=== PATIENT | female | born 1960 | race Caucasian/White ===

== ENCOUNTER → 2021-12-12 13:35 | Outpatient (BNVA) | payer OTHER, SELFPAY | PROVIDERS: PCP Internal Medicine; Visit Provider Nurse Practitioner Family | DX: I25.10 Atherosclerotic heart disease of native coronary artery without angina pectoris (principal); I25.2 Old myocardial infarction; Z79.899 Other long term (current) drug therapy; Z98.890 Other specified postprocedural states | CPT/HCPCS: 99212 ==

== ENCOUNTER → 2022-05-03 12:52 | Outpatient (BNVA) | payer OTHER, SELFPAY | PROVIDERS: PCP Internal Medicine; Visit Provider Nurse Practitioner Family | DX: I25.2 Old myocardial infarction (principal); I20.8 Other forms of angina pectoris; R23.2 Flushing | CPT/HCPCS: 99212 ==

== ENCOUNTER → 2022-09-06 12:59 | Outpatient (BNVA) | payer OTHER, SELFPAY | PROVIDERS: PCP Internal Medicine; Referring Provider Internal Medicine; Visit Provider Nurse Practitioner Family | DX: I25.10 Atherosclerotic heart disease of native coronary artery without angina pectoris (principal); E78.5 Hyperlipidemia, unspecified; I10 Essential (primary) hypertension; I25.2 Old myocardial infarction; Z79.02 Long term (current) use of antithrombotics/antiplatelets; Z79.82 Long term (current) use of aspirin; Z79.899 Other long term (current) drug therapy | CPT/HCPCS: 99212 ==

== ENCOUNTER → 2022-10-18 12:49 | Outpatient (REF) | payer OTHER, SELFPAY ==
--- NOTE | 2022-10-18 12:55 | CA_ITS ---
Transthoracic Echocardiogram Patient (Last, First, Middle): Shelbi Gonzalez, Gender: Female Date of : 1960 Age: 61 Procedure Date: 10/18/2022 Procedure Type: Transthoracic Echocardiogram Location: OP Height: 149.86 cm Weight: 65.77 kg BSA: 1.61 m2 Heart Rate: bpm BP: 140 / 98 mmHg Sales Consultant Residential Manager: TO Referring MD: Aura Espinoza NP-Wilmer Rn Otolaryngology: Hernandez Altamirano MD Symptoms: I25.10 - Atherosclerotic heart disease of [place] coronary artery without... Study Quality: Fair/Contrast ECG Rhythm: Sinus Conclusions: - 1. Mildly reduced LV systolic function with LVEF of 45-50% with grade 1 diastolic dysfunction with regional wall motion abnormality consistent with underlying coronary artery disease 2. Normal cardiac valvular Dopplers next 3. Normal RV systolic pressure 4. No gross pericardial effusion Findings Procedure Information Contrast agent, definity, is being given per protocol without apparent complications. Left Ventricle Normal left ventricular cavity size. There is normal left ventricular wall thickness. The left ventricular systolic function is mildly decreased. The visually estimated ejection fraction is between 45-50%. Spectral Doppler is indicative of an impaired relaxation filling pattern. E/E prime ratio is <8, consistent with normal filling pressures. Evidence suggests grade I (mild) diastolic dysfunction. Wall Motion Rest Echo Findings The inferoseptal wall and mid inferior segment are hypokinetic. The basal inferior segment is akinetic. All other scored wall segments showed normal motion. Right Ventricle Normal right ventricular cavity size and systolic function. Atria The left atrium is normal in size. There is lipomatous hypertrophy of the interatrial septum. There is no evidence of interatrial shunt. The right atrium is normal in size. Aortic Valve There is mild calcification of the aortic valve. There is mild thickening of the aortic valve. There is no aortic valve stenosis. There is no aortic valve regurgitation. Mitral Valve There is mild anterior and posterior mitral leaflet thickening. There is trace mitral valve regurgitation. There is no mitral valve stenosis. Pulmonic Valve The pulmonic valve was not well visualized. Tricuspid Valve Likely normal tricuspid valve structure and function. There is trace tricuspid valve regurgitation. The right ventricular systolic pressure is normal. The right ventricular systolic pressure is 19 mmHg. Normal right atrial pressure. There is no evidence of pulmonary hypertension. Great Vessels All visible segments of the aorta are normal in size. The pulmonary artery was not well visualized. Venous The inferior vena cava is normal in size and collapses greater than 50% with inspiration. Pericardium/Pleural There is no evidence of pericardial effusion. Prior Study Comparison No prior study available for comparison. Measurements 2D Linear Measurements IVSd: 1.05 0.6-0.9/0.6-1.0 cm LVIDd: 4.26 3.9-5.3/4.2-5.9 cm LVIDd Index: 2.65 2.4-3.2/2.2-3.1 cm/m2 LVIDs: 3.60 2.0-3.6 cm LVPWd: 1.02 0.7-1.1 cm LA Diam: 2.80 2.7-3.8/3.0-4.0 cm LAIDs Index: 1.74 1.5-2.3 cm/m2 LV Mass: 183.38 67-162/88-224 g LV Mass Index: 113.90 43-95/49-115 g/m2 LVOT Diam: 1.90 3.0+(-)1.3 cm 2D Systolic Function EF 4C: 48.60 >55% EF 2C: 39.30 >55% EF BiP: 46.60 >55% Mitral Valve MV VTI: 0.22 MV Pk Elder: 0.95 MV Mn Elder: 0.62 MV Pk Grad: 4.00 MV Mn Grad: 2.00 MV Pk E: 0.52 MV PK A: 0.62 MV Decel Time: 212.00 E/A: 0.80 E'Lateral: 6.85 E'Medial: 4.35 E/E' Med: 12.00 E/E' Lat: 7.60 PHT: 62.00 MVA PHT: 3.55 MVA Continuity: 1.94 Decel Hardy: 2.47 Aortic Valve AoV Pk Elder: 1.31 AoV Mn Elder: 0.91 AoV VTI: 0.27 AoV Pk Grad: 7.00 Aov Mn Grad: 4.00 CHUCK Cont.VTI: 1.62 LVOT LVOT Pk Elder: 0.74 LVOT Mn Elder: 0.48 LVOT VTI: 0.15 LVOT Pk Grad: 2.00 LVOT Mn Grad: 1.00 LVOT Diam: 1.90 LVOT Area: 2.84 Diastolic Function MV Pk E: 0.52 MV Pk A: 0.62 E/A: 0.80 E'Medial: 4.35 E/E' Med: 12.00 E' Laterial: 6.85 E/E' Lat: 7.60 Right Ventricle TAPSE (mm): 17.70 TVS' Elder: 8.65 Tricuspid Valve TR Pk Elder: 1.98 TR Pk Grad: 16.00 RA Press: 3.00 RVSP: 19.00 Great Vessels Aorta Sinus of Valsalva: 3.28 2.0-3.5 cm Ao Asc: 3.10 2.1-3.4 cm Updated in Other Vendor System with Status of Final Hernandez Altamirano MD electronically signed on 10/18/2022 4:56:50 PM with status of Final
== END ==
LOC: HO.CARD 12:49
PROVIDERS: PCP Registered Nurse; Visit Provider Nurse Practitioner Family
DX: I25.10 Atherosclerotic heart disease of native coronary artery without angina pectoris (principal); I21.3 ST elevation (STEMI) myocardial infarction of unspecified site
CPT/HCPCS: 93306; Q9957

== ENCOUNTER → 2022-11-16 09:17 | Outpatient (REF) | payer OTHER, SELFPAY ==
--- NOTE | ~2022-11-16 | NM_ITS ---
Myocardial perfusion study Indication: Abnormal cardiac test evaluate for myocardial ischemia Technique: The patient was brought in for a Lexiscan perfusion study on 11/16/2022. Patient performed low-level exercise and was injected 0.4 mg of Lexiscan intravenously. Within a minute of injection, 25 mCi of sestamibi was given intravenously. Images were obtained using the SPECT gamma camera interlaced with the gating device. Images were obtained in supine position. Resting perfusion study was performed on 11/20/2022. Patient was administered 25 mCi of sestamibi intravenously at rest. Images were then obtained in supine position. Images obtained with and without CT attenuation. Total DLP 108 mGy-cm. Images were processed with the software and compared side to side in short axis, horizontal long axis and vertical long axis views. Findings: The stress perfusion study showed non attenuated images show moderate to severely reduced uptake in the basal inferior wall of the LV myocardium. Attenuation corrected images show mildly reduced uptake in the apex and severely reduced uptake in the basal inferior wall of the LV myocardium.. The gated study shows low normal LV systolic function with calculated LVEF of 54%. LV cavity is normal size. The gated study shows reduced basal inferior wall thickening and contraction of segments. Resting study shows no change in perfusion pattern compared to stress perfusion study. Gating at rest reveals basal inferior wall motion abnormality with ejection fraction at 51%. The findings are consistent with no reversible ischemia with fixed defect in the inferior wall consistent with prior myocardial infarction. LA/LA cardiolite stress test Impression: 1. Myocardial perfusion imaging study shows basal inferior myocardial infarction with no reversible ischemia 2. Gated LVEF is 54% 3. Transient ischemic dilatation not present EKG is nondiagnostic for ischemia
--- NOTE | 2022-11-16 09:20 | CA_ITS ---
Acquisition Time: 2022-11-16 09:24:05 Total Exercise Time: 00:03:00 Test Indications: ABN ECHO Medications: Protocol: LAURA Max HR: 129 BPM 80% of Pred: 160 BPM Max BP: 158/090 mmHG Max Work Load: 4.6 METS Exercise stress test exercise 3 min briefly achieving 80% MPHR, with request to stop due to fatigue and moderate SOB without being able to continue, without chest discomfort, without arrhythmias, with normotensive response to exercise, without EKG changes. Breathing returned to normal. Test changed to pharmacological stress test with Lexiscan, without anginal symptoms, without arrhythmias, with normotensive response to injection, with non-diagnositic EKGs. Aminophylline 75mg IVP given to reverse Lexiscan. Nuclear images pending. Test reviewed with Dr. Altamirano. Referred By: Aura Espinoza Overread By: Diana Hurley
== END ==
LOC: HO.CARD 09:17
PROVIDERS: PCP Registered Nurse; Visit Provider Nurse Practitioner Family
DX: I25.10 Atherosclerotic heart disease of native coronary artery without angina pectoris (principal); R93.1 Abnormal findings on diagnostic imaging of heart and coronary circulation; Z98.890 Other specified postprocedural states
CPT/HCPCS: 78452; 93017; A9500; J0280; J2785

== ENCOUNTER → 2022-11-16 09:20 | Outpatient (BNV) | payer OTHER, SELFPAY | PROVIDERS: PCP Registered Nurse; Visit Provider Nurse Practitioner | DX: I25.10 Atherosclerotic heart disease of native coronary artery without angina pectoris (principal) | CPT/HCPCS: 78452; 93016; 93018 ==

== ENCOUNTER 2022-11-29 10:57 | Outpatient (REF) | payer OTHER, SELFPAY ==
[2022-11-29 11:48] LABS: B Type Natriuretic Peptide 84 pg/mL (<100)
[2022-11-29 12:51] LABS: Alanine Aminotransferase 30 U/L (0-31); Alkaline Phosphatase 104 U/L (39-117); Anion Gap 14 (12-20); Aspartate Amino Transferase 38 U/L (5-31); Bilirubin Total 0.6 mg/dL (0.0-1.0); Blood Urea Nitrogen 16 mg/dL (9-16); Calcium 9.3 mg/dL (8.4-10.2); Carbon Dioxide 28 mmol/L (22-29); Chloride 105 mmol/L (96-108); Cholesterol 146 mg/dL; Estimated Glomerular Filt Rate > 60; Glucose Fasting 95 mg/dL (60-99); HDL Cholesterol 63 mg/dL; LDL Cholesterol Calculated 63 mg/dl; Potassium 4.3 mmol/L (3.3-5.1); Sodium 143 mmol/L (135-145); Total Protein 6.7 g/dL (6.5-8.0); Triglycerides 101 mg/dL
== END 2022-11-29 10:58 | disposition home or self-care (01) ==
LOC: HO.LAB 10:57
PROVIDERS: PCP Registered Nurse; Visit Provider Nurse Practitioner Family
DX: I21.3 ST elevation (STEMI) myocardial infarction of unspecified site (principal); I25.10 Atherosclerotic heart disease of native coronary artery without angina pectoris; R06.02 Shortness of breath; E78.5 Hyperlipidemia, unspecified; I10 Essential (primary) hypertension; Z98.890 Other specified postprocedural states
CPT/HCPCS: 36415; 80053; 80061; 83880; 93005; 99212

== ENCOUNTER 2022-11-29 12:58 | Outpatient (AMB) | payer OTHER, SELFPAY ==
[2022-11-29 13:02] VITALS: BP 140/60; PULSE 79; BMI 30.3
--- NOTE | 2022-11-29 13:02 | MHC.OFFVIS ---
Intake Vital Signs 11/29/22 13:02 Height 4 ft 11 in Weight 149 lb 14.629 oz BMI 30.3 BP 140/60 H Blood Pressure Location Lt brachial Position Sitting Pulse 79 Intake Visit Reasons: 3 month follow up Intake Note: 3 month f/u Lead Caster Helper Required: No Allergies No Known Allergies [No Known Allergies*] Allergy (Verified 11/29/22 13:11) Medication List - Last Reconciled 11/29/22 by Aura Espinoza, REILLY-C acetaminophen 500 mg PO Q4-6H PRN aspirin 81 mg PO DAILY atorvastatin 80 mg PO DAILY buspirone 10 mg PO BID cetirizine 10 mg PO DAILY clopidogrel 75 mg PO DAILY duloxetine 120 mg PO DAILY famotidine 40 mg PO BID ferrous sulfate 325 mg PO DAILY gabapentin 300 mg PO BEDTIME hydroxyzine HCl 25 mg PO BID PRN metoprolol succinate ER 25 mg PO DAILY 90 days risperidone 0.5 mg PO BEDTIME sennosides-docusate sodium 8.6-50 mg (Senna Plus) 2 tabs PO BEDTIME tramadol 50 mg PO DAILY HPI 3 month follow up HPI Details Shelbi is a 61-year-old female with past medical history of hypertension and hyperlipidemia who presented to [facility] with CP, inferior STEMI, October 2021.? Cardiac catheterization showed occluded RCA which was managed medically due to late presentation. She underwent an echocardiogram recently which did show a mild reduction in her EF which led to a nuclear stress test showing her prior inferior infarct. She was noted to have significantly decreased activity tolerance. Today she reports that she does have shortness of breath with activity but it has been unchanged overall in the last 2-3 years. She admits to being mostly sedentary. She denies any lung issues and has never smoked tobacco. She admits to smoking marijuana up to 3 times daily to help relax her. No PND, orthopnea or edema. No chest discomfort at rest or with activity. No palpitations, dizziness, presyncope, syncope, falls. She bruises easily with the use of aspirin and Plavix. is present. [facility] Medical History CAD (coronary artery disease) ST elevation (STEMI) myocardial infarction Surgical History H/O tubal ligation History of bladder surgery Hx of cardiac cath Family History Mother Lung cancer Heart attack Father Heart attack Brother Congestive heart failure Brother Alcoholism Liver cirrhosis Social History Alcohol intake: current Alcohol intake frequency: holidays/special occasions only Patient Tobacco Use Status: Never used Tobacco Substance Use Type: Marijuana Review of Systems Const All systems reviewed & are unremarkable except as noted in HPI and below ENT Denies dizziness Card Details: Symptom is not new, has been going on 2-3 years Denies chest pain, Denies chest pain at rest, Denies chest pain with activity, Denies rapid heart rate, Denies pedal edema, Denies edema, Denies leg edema, Denies lightheadedness, Denies palpitations, Reports dyspnea, Reports dyspnea on exertion and Denies orthopnea Resp Denies cough, Reports dyspnea and Reports dyspnea on exertion GI Denies hematochezia and Denies change in stool character Musc Denies abnormal gait, Reports limited range of motion, Reports muscle cramps, Denies muscle weakness, Denies numbness, Denies radiating pain into limb, Denies stiffness and Denies tingling Neuro Denies abnormal gait, Denies dizziness, Denies numbness and Denies tingling Endo Denies palpitations Physical Exam Vital Signs: Last Vital Signs Pulse 79 11/29/22 13:02 BP 140/60 H 11/29/22 13:02 BMI result Body Mass Index 30.3 Const General: cooperative, healthy appearing, comfortable and no acute distress Orientation/consciousness: patient oriented x3 Neck Neck: Yes normal visual inspection Resp Effort & Inspection: normal respiratory effort Auscultation: clear to auscultation bilaterally, no crackles, no rales, no rhonchi and no wheezes Cardio Jugular venous distension: no JVD Rate: regular rate Rhythm: regular rhythm Heart sounds: S1 normal heart sound present, S2 normal heart sound present, no murmurs and no rubs Neuro General: patient oriented x3 Extrem General: Yes normal to inspection Psych Appearance: grossly normal Mental Status: mental status grossly normal Speech and movement: Normal speech and movement present Office Procedures EKG Details: Today, read by me, normal sinus rhythm, left axis deviation, old inferior infarct, computer states can not rule out anterior infarct however no significant changes noted from prior EKG, could be lead placement versus body habitus, rate 79, QTC 431 millisecond [id number], Complete Assessment & Plan Assessment & Plan (1) ST elevation (STEMI) myocardial infarction: Code(s): I21.3 - ST elevation (STEMI) myocardial infarction of unspecified site Plan: Patient started having chest discomfort on 10/29/2021. She presented to [facility] ER on 11/01/2021 with inferior STEMI. She was taken to the component lab tech showing 100% RCA occlusion. PCI was not performed due to late presentation. She also had residual left main, 30% stenosis and LAD 50% stenosis. Echocardiogram done on 11/02/21 showed EF 65-70%, basal to mid inferior wall is akinetic, basal to mid inferior lateral wall is hypokinetic. She was started on aspirin indefinitely. Plavix 75 mg daily uninterrupted for a minimum of 1 year. High-dose atorvastatin and metoprolol. On last visit she denied anginal sounding symptoms. She underwent an echocardiogram to re-evaluate wall motion showing a reduction in EF down to 45-50%, grade 1 diastolic dysfunction, inferior regional wall motion abnormality. This was followed by an exercise nuclear stress test. She was noted to have significant decrease in exercise tolerance with symptom of shortness of breath. She admitted to having shortness of breath with activity even prior to her PA. her test was changed to a pharmacological stress test and the nuclear imaging showed a basal inferior PA with no reversible ischemia, EF 54%. Today she admits to the ongoing shortness of breath with activity. She admits to being sedentary as a result of this. BNP done today 84. With her residual CAD will review with Dr. Chakraborty regarding diagnostic angiogram to further evaluate. Cardiac risk factor modification reviewed. Will continue current med management including use of Plavix. Signs and symptoms of angina discussed. ED care if ever needed for symptoms. Cardiology follow-up to be determined (2) CAD (coronary artery disease): Code(s): I25.10 - Atherosclerotic heart disease of [place] coronary artery without angina pectoris Plan: No prior known history prior to cardiac event as above (3) Hx of cardiac cath: Comment: 11/01/2021 distal left main 30% stenosis, proximal LAD ostial 50% stenosis, mid LAD proximal 50% stenosis, left circumflex normal, RCA proximal 100% stenosis Code(s): Z98.890 - Other specified postprocedural states (4) Hyperlipemia: Code(s): E78.5 - Hyperlipidemia, unspecified Plan: [place] LDL goal < 70 in pt with CAD, stent. Labs today showed LDL 63. Continue high dose atorvastatin. Weight loss and increasing physical activity as able reviewed. (5) Hypertension: Code(s): I10 - Essential (primary) hypertension Plan: Mild elevation today, improved on recheck. Will continue current metoprolol. She will continue to check BPs at home and call if ongoing elevation. Low salt diet reviewed. Coding Level of Care Code Est Pt Level 4 (88713) Diagnoses ST elevation (STEMI) myocardial infarction I21.3 CAD (coronary artery disease) I25.10 Hx of cardiac cath Z98.890 Hyperlipemia E78.5 Hypertension I10 CPT Codes EKG - CPT: [id number], Complete ([id number]) Time Spent (min) 26 Comment Chart review, documentation, interview, assessment
== END 2022-11-29 13:52 | disposition home or self-care (01) ==
PROVIDERS: PCP Registered Nurse; Referring Provider Registered Nurse; Visit Provider Nurse Practitioner Family
DX: I21.3 ST elevation (STEMI) myocardial infarction of unspecified site (principal); I25.10 Atherosclerotic heart disease of native coronary artery without angina pectoris; Z98.890 Other specified postprocedural states; E78.5 Hyperlipidemia, unspecified; I10 Essential (primary) hypertension
CPT/HCPCS: 93010; 99214

== ENCOUNTER 2023-01-10 15:13 | Outpatient (REF) | payer OTHER, SELFPAY ==
[2023-01-10 15:48] LABS: MANUAL DIFF FLAG NO
[2023-01-10 16:16] LABS: Basophils Percent Auto 0.7 % (0-2); Eosinophils Absolute Auto 0.2 X10*3/uL (0.0-0.4); Eosinophils Percent Auto 4.2 % (0-4); Hematocrit 40.5 % (37.0-47.0); Hemoglobin 13.4 g/dl (12.0-16.0); Imm Gran Abs Auto 0.02 X10*3/uL (0.00-0.03); Imm Gran Pct Auto 0.5 % (0.0-0.4); Lymphocytes Absolute Auto 1.2 X10*3/uL (1.2-4.9); Lymphocytes Percent Auto 28.1 % (20-40); Mean Corpuscular HGB Conc 33.1 g/dl (31.0-35.0); Mean Corpuscular Hemoglobin 29.8 pg (27.0-33.0); Mean Platelet Volume 8.5 fL (9.4-12.3); Monocytes Absolute Auto 0.4 X10*3/uL (0.1-1.2); Monocytes Percent Auto 9.1 % (2-11); Neutrophils Absolute Auto 2.5 x10*3/uL (2.0-8.3); Neutrophils Percent Auto 57.4 % (45-73); Platelet Count 207 X10*3/uL (160-400); Red Cell Distribution Width 14.9 % (11.0-16.0); White Blood Count 4.3 X10*3/uL (4.8-10.8)
[2023-01-10 16:18] LABS: INTERNATIONAL NORM RATIO 0.9 (0.9-1.1); Prothrombin Time 10.8 SEC (11.1-13.3)
[2023-01-10 17:00] LABS: Anion Gap 15 (12-20); Blood Urea Nitrogen 14 mg/dL (9-16); Carbon Dioxide 26 mmol/L (22-29); Chloride 102 mmol/L (96-108); Estimated Glomerular Filt Rate > 60; Glucose Random 106 mg/dL (60-115); Potassium 3.7 mmol/L (3.3-5.1); Sodium 139 mmol/L (135-145)
== END 2023-01-10 15:14 | disposition home or self-care (01) ==
LOC: HO.LAB 15:13
PROVIDERS: Visit Provider Nurse Practitioner Family
DX: R06.02 Shortness of breath (principal); R93.1 Abnormal findings on diagnostic imaging of heart and coronary circulation; I25.10 Atherosclerotic heart disease of native coronary artery without angina pectoris; Z98.890 Other specified postprocedural states
CPT/HCPCS: 36415; 80048; 85025; 85610

== ENCOUNTER → 2023-01-15 23:59 | Outpatient (BNV) | payer OTHER, SELFPAY | PROVIDERS: PCP Registered Nurse; Visit Provider Internal Medicine Cardiovascular Disease | DX: I50.20 Unspecified systolic (congestive) heart failure (principal); R06.02 Shortness of breath | CPT/HCPCS: 93458; 93571; 99152 ==

== ENCOUNTER 2023-01-29 14:10 | Outpatient (AMB) | payer OTHER, SELFPAY ==
[2023-01-29 14:31] VITALS: BP 120/82; PULSE 85; BMI 31.2
--- NOTE | 2023-01-29 14:31 | A.OFFVIS_ITS ---
Intake Vital Signs 01/29/23 14:31 Height 4 ft 11 in Weight 154 lb 5.177 oz BMI 31.2 BP 120/82 Blood Pressure Location Lt brachial Position Sitting Pulse 85 Intake Visit Reasons: Follow up post cardiac cath Intake Note: f/u post cardiac cath Traveling Construction Superintendent Required: No Transfer Coordinator: Transfer Coordinator Present Accompanied by: Spouse Allergies No Known Allergies [No Known Allergies*] Allergy (Verified 01/29/23 14:36) Medication List - Last Reconciled 01/29/23 by Aura Espinoza NP-C acetaminophen 500 mg PO Q4-6H PRN aspirin 81 mg PO DAILY atorvastatin 80 mg PO DAILY buspirone 10 mg PO BID cetirizine 10 mg PO DAILY clopidogrel 75 mg PO DAILY duloxetine 120 mg PO DAILY famotidine 40 mg PO BID ferrous sulfate 325 mg PO DAILY gabapentin 300 mg PO BEDTIME hydroxyzine HCl 25 mg PO BID PRN metoprolol succinate ER 25 mg PO DAILY 90 days risperidone 0.5 mg PO BEDTIME tramadol 50 mg PO DAILY HPI Follow up post cardiac cath HPI Details Shelbi is a 61-year-old female with past medical history of hypertension and hyperlipidemia who presented to with CP, inferior STEMI, October 2021.? Cardiac catheterization showed occluded RCA which was managed medically due to late presentation. She underwent an echocardiogram recently which did show a mild reduction in her EF which led to a nuclear stress test showing her prior inferior infarct. She was noted to have significantly decreased activity tolerance. She underwent a repeat cardiac catheterization showing moderate left main and LAD stenosis, RCA proximal 90% stenosis. An MRI has been ordered to assess RCA territory viability. Today she reports that she continues to have shortness of breath with activity. She also reports fatigue which has been ongoing. No concerning chest discomfort at rest or with activity. No palpitations, presyncope, syncope, falls. No PND, orthopnea or edema. Continues to smoke marijuana up to 3 times daily to help her relax. Taking meds as directed. No bleeding issues reported beyond easy br uising. Right radial catheterization site healing well. is present. [facility] Medical History CAD (coronary artery disease) ST elevation (STEMI) myocardial infarction Surgical History History of bladder surgery Hx of cardiac cath H/O tubal ligation Family History Mother Lung cancer Heart attack Father Heart attack Brother Congestive heart failure Brother Alcoholism Liver cirrhosis Social History Alcohol intake: current Alcohol intake frequency: holidays/special occasions only Patient Tobacco Use Status: Never used Tobacco Substance Use Type: Marijuana Review of Systems Const Details: Fatigue All systems reviewed & are unremarkable except as noted in HPI and below ENT Denies dizziness Card Denies chest pain, Denies chest pain at rest, Denies chest pain with activity, Denies rapid heart rate, Denies pedal edema, Denies edema, Denies leg edema, Denies lightheadedness, Denies palpitations, Denies dyspnea, Reports dyspnea on exertion and Denies orthopnea Resp Denies cough, Denies dyspnea and Reports dyspnea on exertion GI Denies hematochezia and Denies change in stool character Musc Denies abnormal gait, Reports limited range of motion, Reports muscle cramps, Denies muscle weakness, Denies numbness, Denies radiating pain into limb, Denies stiffness and Denies tingling Neuro Denies abnormal gait, Denies dizziness, Denies numbness and Denies tingling Endo Denies palpitations Physical Exam Vital Signs: Last Vital Signs Pulse 85 01/29/23 14:31 BP 120/82 01/29/23 14:31 BMI result Body Mass Index 31.2 Const General: cooperative, healthy appearing, comfortable and no acute distress Orientation/consciousness: patient oriented x3 Neck Neck: Yes normal visual inspection Resp Effort & Inspection: normal respiratory effort Auscultation: clear to auscultation bilaterally, no crackles, no rales, no r [place] and no wheezes Cardio Jugular venous distension: no JVD Rate: regular rate Rhythm: regular rhythm Heart sounds: S1 normal heart sound present, S2 normal heart sound present, no murmurs and no rubs Neuro General: patient oriented x3 Extrem Other: Right radial artery catheterization site well healed. Easily palpable radial pulse, hand assessment normal. General: Yes normal to inspection Psych Appearance: grossly normal Mental Status: mental status grossly normal Speech and movement: Normal speech and movement present Assessment & Plan Assessment & Plan (1) ST elevation (STEMI) myocardial infarction: Code(s): I21.3 - ST elevation (STEMI) myocardial infarction of unspecified site Qualifiers: Involved coronary artery: right coronary artery Qualified Code(s): I21.11 - ST elevation (STEMI) myocardial infarction involving right coronary artery Plan: Patient started having chest discomfort on 10/29/2021. She presented to [facility] ER on 11/01/2021 with inferior STEMI. She was taken to the forestry laborer showing 100% RCA occlusion. PCI was not performed due to late presentation. She also had residual left main, 30% stenosis and LAD 50% stenosis. Echocardiogram done on 11/02/21 showed EF 65-70%, basal to mid inferior wall is akinetic, basal to mid inferior lateral wall is hypokinetic. She was put on appropriate med management. Or recently reported increasing shortness of breath and fatigue. An echocardiogram was recently done showing EF down to 45-50%, grade 1 diastolic dysfunction, inferior regional wall motion abnormality. Pharmacological nuclear stress test showed basal inferior IA with no reversible ischemia, EF 54%. Diagnostic cardiac catheterization done 01/15/2023 showing moderate disease in left main and LAD, RCA recannulized with 90% stenosis proximally. An MRI has been ordered to assess RCA territory viability. If viable then she may benefit from coronary artery bypass grafting versus stenting. Spent time reviewing this with her in detail. MRI has been ordered however not completed as of yet. At present will continue dual anti-platelet therapy with aspirin and Plavix. Continue high-dose atorvastatin, metoprolol. Cardiac risk factor modification reviewed. Continue light activity as tolerated. Signs and symptoms of angina discussed. ED care if ever needed for symptoms. Cardiology follow-up 3 months, sooner if needed. -anticipate MRI to be completed and follow-up treatment to be completed in this time frame. (2) CAD (coronary artery disease): Code(s): I25.10 - Atherosclerotic heart disease of [place] coronary artery without angina pectoris Qualifiers: Coronary Disease-Associated Artery/Lesion type: [place] artery [place] vs. transplanted heart: [place] heart Associated angina: with stable angina Qualified Code(s): I25.118 - Atherosclerotic heart disease of [place] coronary artery with other forms of angina pectoris Plan: No prior known history prior to cardiac event as above (3) Hx of cardiac cath: Comment: 11/01/2021 distal left main 30% stenosis, proximal LAD ostial 50% stenosis, mid LAD proximal 50% stenosis, left circumflex normal, RCA proximal 100% stenosis Code(s): Z98.890 - Other specified postprocedural states (4) S/P cardiac catheterization: Comment: 01/15/2023, left main distal 40% stenosis, lad proximal 60% stenosis, IFR 0.88, RCA proximal 90% stenosis. MRI to be done to check RCA territory viability. Code(s): Z98.890 - Other specified postprocedural states Plan: Right radial catheterization site healing well (5) Hyperlipemia: Code(s): E78.5 - Hyperlipidemia, unspecified Qualifiers: Hyperlipidemia type: unspecified Qualified Code(s): E78.5 - Hyperlipidemia, unspecified Plan: [place] LDL goal < 70 in pt with CAD, stent. Recent labs showed LDL 63. Continue high dose atorvastatin. Weight loss and increasing physical activity as able reviewed. (6) Hypertension: Code(s): I10 - Essential (primary) hypertension Qualifiers: Hypertension type: primary hypertension Qualified Code(s): I10 - Essential (primary) hypertension Plan: Good at present time. Will continue current metoprolol. She does periodic home blood pressure checks. Low salt diet reviewed. Coding Level of Care Code Est Pt Level 4 (16074) Diagnoses ST elevation myocardial infarction involving right coronary artery I21.11 Involved coronary artery: right coronary artery Coronary artery disease of [place] artery of [place] heart with stable angina pectoris I25.118 Coronary Disease-Associated Artery/Lesion type: [place] artery [place] vs. transplanted heart: [place] heart Associated angina: with stable angina Hx of cardiac cath Z98.890 S/P cardiac catheterization Z98.890 Hyperlipidemia, unspecified hyperlipidemia type E78.5 Hyperlipidemia type: unspecified Primary hypertension I10 Hypertension type: primary hypertension Time Spent (min) 28
== END 2023-01-29 15:07 | disposition home or self-care (01) ==
PROVIDERS: PCP Registered Nurse; Visit Provider Nurse Practitioner Family
DX: I21.11 ST elevation (STEMI) myocardial infarction involving right coronary artery (principal); I25.118 Atherosclerotic heart disease of native coronary artery with other forms of angina pectoris; Z98.890 Other specified postprocedural states; E78.5 Hyperlipidemia, unspecified; I10 Essential (primary) hypertension
CPT/HCPCS: 99214

== ENCOUNTER → 2023-01-29 14:10 | Outpatient (BNVA) | payer OTHER, SELFPAY | PROVIDERS: PCP Registered Nurse; Visit Provider Nurse Practitioner Family | DX: I25.118 Atherosclerotic heart disease of native coronary artery with other forms of angina pectoris (principal); E78.5 Hyperlipidemia, unspecified; I10 Essential (primary) hypertension; I25.2 Old myocardial infarction; Z79.02 Long term (current) use of antithrombotics/antiplatelets; Z79.82 Long term (current) use of aspirin; Z79.899 Other long term (current) drug therapy | CPT/HCPCS: 99212 ==

== ENCOUNTER 2023-04-03 11:19 | Outpatient (REF) | payer OTHER, SELFPAY ==
[2023-04-03 12:47] LABS: Anion Gap 14 (12-20); Blood Urea Nitrogen 12 mg/dL (9-16); Calcium 9.5 mg/dL (8.4-10.2); Carbon Dioxide 28 mmol/L (22-29); Chloride 105 mmol/L (96-108); Estimated Glomerular Filt Rate > 60; Glucose Random 108 mg/dL (60-115); Potassium 3.8 mmol/L (3.3-5.1); Sodium 143 mmol/L (135-145)
== END 2023-04-03 11:20 | disposition home or self-care (01) ==
LOC: HO.LAB 11:19
PROVIDERS: PCP Registered Nurse; Visit Provider Nurse Practitioner Family
DX: I25.10 Atherosclerotic heart disease of native coronary artery without angina pectoris (principal)
CPT/HCPCS: 36415; 80048

== ENCOUNTER 2023-04-30 13:21 | Outpatient (AMB) | payer OTHER, SELFPAY ==
[2023-04-30 13:33] VITALS: BP 120/82; PULSE 87; BMI 32.1
--- NOTE | 2023-04-30 13:33 | A.OFFVIS_ITS ---
Intake Vital Signs 04/30/23 13:33 Height 4 ft 11 in Weight 158 lb 11.725 oz BMI 32.1 BP 120/82 Blood Pressure Location Lt brachial Position Sitting Pulse 87 Pulse Source Pulse Oximeter Intake Visit Reasons: 3 mth f/up Obstetrics Nurse Required: No Allergies No Known Allergies [No Known Allergies*] Allergy (Verified 04/30/23 13:36) Medication List - Last Reconciled 04/30/23 by RACHEL Amos acetaminophen 500 mg PO Q4-6H PRN aspirin 81 mg PO DAILY atorvastatin 80 mg PO DAILY buspirone 10 mg PO BID cetirizine 10 mg PO DAILY clopidogrel 75 mg PO DAILY duloxetine 120 mg PO DAILY famotidine 40 mg PO BID ferrous sulfate 325 mg PO DAILY gabapentin 300 mg PO BEDTIME hydroxyzine HCl 25 mg PO BID PRN metoprolol succinate ER 25 mg PO DAILY 90 days risperidone 0.5 mg PO BEDTIME tramadol 50 mg PO DAILY HPI 3 mth f/up HPI Details Shelbi is a 62-year-old female with past medical history of hypertension and hyperlipidemia who presented to [facility] with CP, inferior STEMI, October 2021.? Cardiac catheterization showed occluded RCA which was managed medically due to late presentation. She underwent an echocardiogram recently which did show a mild reduction in her EF which led to a nuclear stress test showing her prior inferior infarct. She was noted to have significantly decreased activity tolerance with symptom of shortness of breath.. She underwent a repeat cardiac catheterization showing moderate left main and LAD stenosis, RCA proximal 90% stenosis. An MRI has been ordered to assess RCA territory viability and she now presents for follow-up. Today she reports that since her last visit in January she has noticed ongoing symptom of shortness of breath with activity. She does not feel this is worsening with time. She does only light physical activity. She has not had any chest discomfort at rest or with activity. No heart palpitations, presyncope, syncope, falls. She did have an episode of lightheadedness on [employer] and needed to sit in a chair for a few minutes for it to resolve. No PND, orthopnea or edema. Taking all meds as directed. No bleeding issues reported. is present. [facility] Medical History ST elevation (STEMI) myocardial infarction CAD (coronary artery disease) Surgical History History of bladder surgery Hx of cardiac cath H/O tubal ligation Family History Mother Lung cancer Heart attack Father Heart attack Brother Congestive heart failure Brother Alcoholism Liver cirrhosis Social History Alcohol intake: current Alcohol intake frequency: holidays/special occasions only Patient Tobacco Use Status: Never used Tobacco Substance Use Type: Marijuana Review of Systems ENT Reports dizziness Card Denies chest pain, Denies chest pain at rest, Denies chest pain with activity, Denies rapid heart rate, Denies pedal edema, Denies edema, Denies leg edema, Denies lightheadedness, Denies palpitations, Denies dyspnea, Denies dyspnea on exertion and Denies orthopnea Resp Denies cough, Denies dyspnea and Denies dyspnea on exertion GI Denies hematochezia and Denies change in stool character Musc Denies abnormal gait, Reports limited range of motion, Reports muscle cramps, Denies muscle weakness, Denies numbness, Denies radiating pain into limb, Denies stiffness and Denies tingling Neuro Denies abnormal gait, Reports dizziness, Denies numbness and Denies tingling Endo Denies palpitations Physical Exam Vital Signs: Last Vital Signs Pulse 87 04/30/23 13:33 BP 120/82 04/30/23 13:33 BMI result Body Mass Index 32.1 Assessment & Plan Assessment & Plan (1) ST elevation (STEMI) myocardial infarction: Code(s): I21.3 - ST elevation (STEMI) myocardial infarction of unspecified site Qualifiers: Involved coronary artery: right coronary artery Qualified Code(s): I21.11 - ST elevation (STEMI) myocardial infarction involving right coronary artery Plan: Patient started having chest discomfort on 10/29/2021. She presented to [facility] ER on 11/01/2021 with inferior STEMI. She was taken to the laboratory administrative director showing 100% RCA occlusion. PCI was not performed due to late presentation. She also had residual left main, 30% stenosis and LAD 50% stenosis. Echocardiogram done on 11/02/21 showed EF 65-70%, basal to mid inferior wall is akinetic, basal to mid inferior lateral wall is hypokinetic. She was put on appropriate med management. On follow up visit she reported increasing shortness of breath and fatigue. An echocardiogram was done 10/18/22 showing EF down to 45-50%, grade 1 diastolic dysfunction, inferior regional wall motion abnormality. Pharmacological nuclear stress test 11/16/22 showed basal inferior NM with no reversible ischemia, EF 54%. She then had Diagnostic cardiac catheterization done 01/15/2023 showing moderate disease in left main and LAD, RCA recannulized with 90% stenosis proximally. An MRI of heart was done on 04/05/2023 showing chronic transmural infarct involving the basal inferior wall and basal inferior septum, EF 48%. Reviewed findings with her in detail. I interpret this that the affected inferior wall has no viability. Will further review with Dr. Chakraborty. It had been thought that If viable was present than she may benefit from coronary artery bypass grafting versus stenting. Plan to call her with plan of care, any changes to treatment plan. Condition is stable at this time. Will have her continue dual anti-platelet therapy with aspirin and Plavix. Continue high-dose atorvastatin with ideal LDL goal less than 70, metoprolol. Cardiac risk factor modification reviewed. Continue light activity as tolerated. Signs and symptoms of angina discussed. ED care if ever needed for symptoms. Cardiology follow-up 3 months, sooner if needed. (2) CAD (coronary artery disease): Code(s): I25.10 - Atherosclerotic heart disease of inupiat coronary artery without angina pectoris Qualifiers: Coronary Disease-Associated Artery/Lesion type: inupiat artery [place] vs. transplanted heart: inupiat heart Associated angina: with stable angina Qualified Code(s): I25.118 - Atherosclerotic heart disease of inupiat coronary artery with other forms of angina pectoris Plan: No prior known history prior to cardiac event as above (3) Hx of cardiac cath: Comment: 11/01/2021 distal left main 30% stenosis, proximal LAD ostial 50% stenosis, mid LAD proximal 50% stenosis, left circumflex normal, RCA proximal 100% stenosis Code(s): Z98.890 - Other specified postprocedural states (4) S/P cardiac catheterization: Comment: 01/15/2023, left main distal 40% stenosis, lad proximal 60% stenosis, IFR 0.88, RCA proximal 90% stenosis. MRI to be done to check RCA territory viability. Code(s): Z98.890 - Other specified postprocedural states Plan: Right radial catheterization site healing well (5) Hyperlipemia: Code(s): E78.5 - Hyperlipidemia, unspecified Qualifiers: Hyperlipidemia type: unspecified Qualified Code(s): E78.5 - Hyperlipidemia, unspecified Plan: [place] LDL goal < 70 in pt with CAD, stent. Recent labs showed LDL 63. Continue high dose atorvastatin. Weight loss and increasing physical activity as able reviewed. (6) Hypertension: Code(s): I10 - Essential (primary) hypertension Qualifiers: Hypertension type: primary hypertension Qualified Code(s): I10 - Essen tial (primary) hypertension Plan: Good at present time. Will continue current metoprolol. She does periodic home blood pressure checks. Low salt diet reviewed. Plan Time spent on chart review, documentation, interview and assessment Coding Level of Care Code Est Pt Level 4 (31191) Diagnoses ST elevation myocardial infarction involving right coronary artery I21.11 Involved coronary artery: right coronary artery Coronary artery disease of inupiat artery of inupiat heart with stable angina pectoris I25.118 Coronary Disease-Associated Artery/Lesion type: [place]iat artery [place] vs. transplanted heart: inupiat heart Associated angina: with stable angina Hx of cardiac cath Z98.890 S/P cardiac catheterization Z98.890 Hyperlipidemia, unspecified hyperlipidemia type E78.5 Hyperlipidemia type: unspecified Primary hypertension I10 Hypertension type: primary hypertension Time Spent (min) 28
== END 2023-04-30 14:12 | disposition home or self-care (01) ==
PROVIDERS: PCP Registered Nurse; Visit Provider Nurse Practitioner Family
DX: I21.11 ST elevation (STEMI) myocardial infarction involving right coronary artery (principal); I25.118 Atherosclerotic heart disease of native coronary artery with other forms of angina pectoris; Z98.890 Other specified postprocedural states; E78.5 Hyperlipidemia, unspecified; I10 Essential (primary) hypertension
CPT/HCPCS: 99214

== ENCOUNTER → 2023-04-30 13:21 | Outpatient (BNVA) | payer OTHER, SELFPAY | PROVIDERS: PCP Registered Nurse; Visit Provider Nurse Practitioner Family | DX: I25.2 Old myocardial infarction (principal); I25.118 Atherosclerotic heart disease of native coronary artery with other forms of angina pectoris; I10 Essential (primary) hypertension; E78.5 Hyperlipidemia, unspecified; Z98.890 Other specified postprocedural states | CPT/HCPCS: 99212 ==

== ENCOUNTER 2023-11-25 14:14 | Outpatient (AMB) | payer OTHER, SELFPAY ==
[2023-11-25 14:27] VITALS: BP 120/70; PULSE 119; BMI 30.5
--- NOTE | 2023-11-25 14:27 | MHC.OFFVIS ---
Vital Signs 11/25/23 14:27 Height 4 ft 11 in Weight 151 lb 3.794 oz BMI 30.5 BP 120/70 Blood Pressure Location Lt brachial Position Sitting Pulse 119 H Pulse Source Monitor Intake Visit Reasons: Follow up /Bypass surgery Pan Washer Hand Required: No Accompanied by: Self / Same As Patient Allergies No Known Allergies [No Known Allergies*] Allergy (Verified 04/30/23 13:36) Medication List - Last Reconciled 11/25/23 by Henri Chakraborty MD acetaminophen 500 mg PO Q4-6H PRN amiodarone mg PO atorvastatin 80 mg PO DAILY buspirone 10 mg PO BID cetirizine 10 mg PO DAILY docusate sodium 100 mg PO DAILY duloxetine 120 mg PO DAILY famotidine 40 mg PO BID ferrous sulfate 325 mg PO DAILY gabapentin 300 mg PO BEDTIME hydroxyzine HCl 25 mg PO BID PRN ondansetron mg PO oxybutynin chloride ER 5 mg PO DAILY prochlorperazine maleate mg PO risperidone 0.5 mg PO BEDTIME thiamine HCl (vitamin B1) 100 mg PO DAILY tramadol ER 100 mg PO DAILY HPI Comments Details: Pleasant 62-year-old female here for follow-up. She has background history of late presenting inferior wall CO for which she was medically managed. She also has moderate disease in the LAD and mild disease in the circumflex arteries. She has no chest discomfort but is complaining of hot flashes. She said she had hot flashes 10 years ago when she went through menopause. Recently she has been noticing hot flashes at rest where she feels hot and starts becoming sweaty. She is concerned because she had similar symptoms when she had acute coronary syndrome but she also had a bandlike chest discomfort which has not happened since then. 11/25/2023: She is here for follow-up. She underwent cardiac catheterization where IFR positive LAD stenosis was noted. She had recanalization of the RCA occlusion. Subsequent to that she was referred for coronary artery bypass surgery which she underwent in 07/10/2023. Unfortunately she also got diagnosed with mantle cell lymphoma and received chemotherapy with anemia. It appears her aspirin and Plavix were held due to significant anemia and multiple blood transfusions. Also her beta-tj was held. She is denying any chest pain or shortness of breath. She is accompanied by her daughter who said that she lost significant amount of weight but is beginning to gain weight again. She has been eating and drinking normal. Continues to be on oral chemotherapy at this stage. She is noted to be tachycardic to 120 beats per minute. She has been using hydroxyzine for sleep twice a day. She also is off metoprolol. [facility] Medical History ST elevation (STEMI) myocardial infarction CAD (coronary artery disease) Surgical History History of bladder surgery Hx of cardiac cath H/O tubal ligation Family History Mother Lung cancer Heart attack Father Heart attack Brother Congestive heart failure Brother Alcoholism Liver cirrhosis Social History Alcohol intake: current Alcohol intake frequency: holidays/special occasions only Patient Tobacco Use Status: Never used Tobacco Substance Use Type: Marijuana Review of Systems Const Denies chills, Denies fatigue, Denies fever(s), Denies frequent falls, Denies weakness, Denies weight gain and Denies weight loss ENT Denies dizziness Card Denies chest pain, Denies leg edema, Denies lightheadedness, Denies palpitations, Denies dyspnea and Denies dyspnea on exertion Resp Denies cough, Denies dyspnea and Denies dyspnea on exertion GI Denies hematochezia Musc Denies abnormal gait, Denies muscle weakness, Denies numbness, Denies radiating pain into limb and Denies tingling Neuro Denies abnormal gait, Denies dizziness, Denies frequent falls, Denies numbness, Denies tingling and Denies weakness Endo Denies fatigue and Denies palpitations Physical Exam Vital Signs: Last Vital Signs Pulse 119 H 11/25/23 14:27 BP 120/70 11/25/23 14:27 BMI result Body Mass Index 30.5 GENERAL APPEARANCE: in no acute distress, pleasant. NECK: no carotid bruit, no jugular venous distention. SKIN: no suspicious lesions, warm and dry. HEART: no murmurs, regular rate and rhythm. Tachycardic. LUNGS: clear to auscultation bilaterally. ABDOMEN: soft, nontender. EXTREMITIES: no edema. PERIPHERAL PULSES: equal. NEUROLOGIC: No gross deficits, AAO X 3 Office Procedures EKG Details: Sinus tachycardia 119 beats per minute, normal axis, low voltage, can not rule out anterior infarct, QTC 478 milliseconds. [id number], Complete Assessment & Plan Assessment & Plan (1) Stable angina: Code(s): I20.8 - Other forms of angina pectoris Category: Medical (2) S/P CABG x 2: Code(s): Z95.1 - Presence of aortocoronary bypass graft Category: Surgical (3) Lymphoma: Code(s): C85.90 - Non-Hodgkin lymphoma, unspecified, unspecified site Category: Medical (4) Sinus tachycardia: Code(s): R00.0 - Tachycardia, unspecified Category: Medical Plan Pleasant 62 year female who is here for follow-up. She is status post coronary artery bypass surgery with QUINTEROS to LAD and graft to the RCA. She unfortunately was also diagnosed with mantle cell lymphoma at the same time and is currently getting chemotherapy. She is tachycardic on examination. I have advised her to keep herself well hydrated. I am resuming her metoprolol and I have advised her to stop the hydroxyzine. She has been using this for anxiety and sleep. Blood pressure is stable. Given tachycardia I will get echocardiogram to assess for any myopathy or pericardial effusion. She does not have any significant JVD or concerning signs. When stable from lymphoma and hemoglobin has been stable then I would resume antiplatelet therapy. Thank you for allowing me to participate in the care of your patient. Please feel free to contact me if you have any questions. Orders: Orders CA echo transthorac w con Today R00.0 - Tachycardia, unspecified Medications: New metoprolol succinate ER 25 mg PO DAILY 60 tabs 3RF Coding Level of Care Code Est Pt Level 4 (69916) Diagnoses Stable angina I20.8 S/P CABG x 2 Z95.1 Lymphoma C85.90 Sinus tachycardia R00.0 CPT Codes EKG - CPT: 04068-[id number], Complete ([id number])
== END 2023-11-25 15:04 | disposition home or self-care (01) ==
PROVIDERS: PCP Registered Nurse; Visit Provider Internal Medicine Cardiovascular Disease
DX: I20.89 Other forms of angina pectoris (principal); Z95.1 Presence of aortocoronary bypass graft; C85.90 Non-Hodgkin lymphoma, unspecified, unspecified site; R00.0 Tachycardia, unspecified
CPT/HCPCS: 93010; 99214

== ENCOUNTER → 2023-11-25 14:14 | Outpatient (BNVA) | payer OTHER, SELFPAY | PROVIDERS: PCP Registered Nurse; Visit Provider Internal Medicine Cardiovascular Disease | DX: I20.89 Other forms of angina pectoris (principal); C85.90 Non-Hodgkin lymphoma, unspecified, unspecified site; R00.0 Tachycardia, unspecified; Z95.1 Presence of aortocoronary bypass graft | CPT/HCPCS: 93005; 99212 ==

== ENCOUNTER → 2023-11-26 10:50 | Outpatient (REF) | payer OTHER, SELFPAY ==
--- NOTE | 2023-11-26 10:58 | CA_ITS ---
Transthoracic Echocardiogram Patient (Last, First, Middle): Shelbi Gonzalez, Gender: Female Date of : 1960 Age: 62 Procedure Date: 11/26/2023 Procedure Type: Transthoracic Echocardiogram Location: OP Height: 149.86 cm Weight: 58.97 kg BSA: 1.54 m2 Heart Rate: bpm BP: 110 / 60 mmHg Head [employer] Director: TO Referring MD: Henri Chakraborty MD Adjuster Arbitrator: Henri Chakraborty MD Symptoms: R00.0 - Tachycardia, unspecified Study Quality: Adequate Conclusions: - Normal left ventricular cavity size. There is mildly increased left ventricular wall thickness. The left ventricular systolic function is low normal. The visually estimated ejection fraction is between 50-55%. - The mid inferior segment is hypokinetic. - The basal inferior segment is akinetic. - Normal right ventricular cavity size. There is low normal right ventricular systolic function. Findings Left Ventricle Normal left ventricular cavity size. There is mildly increased left ventricular wall thickness. The left ventricular systolic function is low normal. The visually estimated ejection fraction is between 50-55%. There is evidence of regional wall motion abnormalities. Abnormal diastolic function is noted. Spectral Doppler is indicative of an impaired relaxation filling pattern. E/E prime ratio is between 8 and 15 consistent with indeterminate filling pressures. Wall Motion Rest Echo Findings The mid inferior segment is hypokinetic. The basal inferior segment is akinetic. Right Ventricle Normal right ventricular cavity size. There is low normal right ventricular systolic function. Atria The left atrium is normal in size. The right atrium is normal in size. Aortic Valve There is a normal trileaflet aortic valve. The raphe is between the non coronary cusp. There is mild calcification of the aortic valve. There is no aortic valve stenosis. There is no aortic valve regurgitation. Mitral Valve The mitral valve appears normal. There is no mitral valve regurgitation. There is no mitral valve stenosis. Pulmonic Valve The pulmonic valve is normal. There is no pulmonic valve regurgitation. Tricuspid Valve Normal tricuspid valve structure. There is mild tricuspid valve regurgitation. Normal right atrial pressure. There is no evidence of pulmonary hypertension. Great Vessels All visible segments of the aorta are normal in size. The visualized portions of the pulmonary artery and branches are normal. Venous The inferior vena cava is normal in size and collapses greater than 50% with inspiration. Pericardium/Pleural There is no evidence of pericardial effusion. Prior Study Comparison Changes noted compared to prior study dated: 10/18/2022. EF 50-55%, basal to mid inferior wall motion abnormality. Measurements 2D Linear Measurements IVSd: 1.11 0.6-0.9/0.6-1.0 cm LVIDd: 4.46 3.9-5.3/4.2-5.9 cm LVIDd Index: 2.90 2.4-3.2/2.2-3.1 cm/m2 LVIDs: 3.58 2.0-3.6 cm LVPWd: 0.95 0.7-1.1 cm LA Diam: 3.40 2.7-3.8/3.0-4.0 cm LAIDs Index: 2.21 1.5-2.3 cm/m2 LV Mass: 195.33 67-162/88-224 g LV Mass Index: 126.84 43-95/49-115 g/m2 LVOT Diam: 2.00 3.0+(-)1.3 cm 2D Systolic Function EF 4C: 53.10 >55% EF 2C: 41.20 >55% EF BiP: 46.90 >55% Mitral Valve MV Pk E: 0.61 MV PK A: 0.72 MV Decel Time: 191.00 E/A: 0.80 E'Lateral: 8.38 E'Medial: 4.13 E/E' Med: 14.70 E/E' Lat: 7.30 PHT: 56.00 MVA PHT: 3.93 Decel [place]: 3.19 Aortic Valve AoV Pk Elder: 1.46 AoV Mn Elder: 1.02 AoV VTI: 0.26 AoV Pk Grad: 9.00 Aov Mn Grad: 5.00 CHUCK Cont.VTI: 1.97 LVOT LVOT Pk Elder: 0.91 LVOT Mn Elder: 0.55 LVOT VTI: 0.16 LVOT Pk Grad: 3.00 LVOT Mn Grad: 1.00 LVOT Diam: 2.00 LVOT Area: 3.14 Diastolic Function MV Pk E: 0.61 MV Pk A: 0.72 E/A: 0.80 E'Medial: 4.13 E/E' Med: 14.70 E' Laterial: 8.38 E/E' Lat: 7.30 Right Ventricle TAPSE (mm): 13.10 TVS' Elder: 6.79 Tricuspid Valve TR Pk Elder: 2.08 TR Pk Grad: 17.00 RA Press: 3.00 RVSP: 20.00 Great Vessels Aorta Sinus of Valsalva: 3.28 2.0-3.5 cm Ao Asc: 2.90 2.1-3.4 cm Updated in Other Vendor System with Status of Final Henri Chakraborty MD electronically signed on 11/26/2023 5:48:54 PM with status of Final
== END ==
LOC: HO.CARD 10:50
PROVIDERS: Visit Provider Internal Medicine Cardiovascular Disease
DX: R00.0 Tachycardia, unspecified (principal)
CPT/HCPCS: 93306

== ENCOUNTER → 2023-11-26 10:58 | Outpatient (BNV) | payer OTHER, SELFPAY | PROVIDERS: Visit Provider Internal Medicine Cardiovascular Disease | DX: Q23.8 Other congenital malformations of aortic and mitral valves (principal); I36.1 Nonrheumatic tricuspid (valve) insufficiency; I51.89 Other ill-defined heart diseases | CPT/HCPCS: 93303; 93320; 93325 ==